=== PATIENT | female | born 1955 | race Caucasian/White ===

== ENCOUNTER 2020-02-17 17:42 | Emergency (ER) | payer MEDICARE, MEDICAID ==
[~2020-02-17] VITALS: Ht 162.6 cm; Wt 82.0 kg
[~2020-02-17 17:42] MED LIST: ASPI-1497 MT; MELA2.5T MT; METO-539 MT; TRAZ-252 MT
[2020-02-17 23:53] LABS: BASOPHILS % 0.3 % (0.0-2.0); EOSINOPHILS % 0.1 % (0.0-5.0); HEMATOCRIT. 29.3 % (36.0-48.0); HEMOGLOBIN. 9.9 g/dL (12.0-16.0); LYMPHOCYTES % 14.5 % (20.0-50.0); MEAN CORPUSCULAR HEMOGLOBIN 31.1 pg (28.0-32.0); MEAN CORPUSCULAR VOLUME 91.7 fL (81.0-99.0); MONOCYTES % 7.2 % (2.0-8.0); NEUTROPHILS % 77.9 % (40.0-76.0); PLATELET 236 x1000/uL (130-400); RED CELL DISTRIBUTION WIDTH 13.8 % (11.6-14.6)
[2020-02-18 00:03] LABS: CHLORIDE 106 mEq/L (98-107); PROTHROMBIN TIME 10.8 sec (9.6-11.0)
[2020-02-18 00:06] LABS: ETHANOL BLOOD < 10 mg/dL
[2020-02-18 06:38] VITALS: BP 146/84
== END 2020-02-18 09:11 | disposition home or self-care (01) ==
LOC: ER 17:42
DX: E09.649 Drug or chemical induced diabetes mellitus with hypoglycemia without coma (principal); G93.49 Other encephalopathy; I13.10 Hypertensive heart and chronic kidney disease without heart failure, with stage 1 through stage 4 chronic kidney disease, or unspecified chronic kidney disease; N18.9 Chronic kidney disease, unspecified; I69.351 Hemiplegia and hemiparesis following cerebral infarction affecting right dominant side; E78.00 Pure hypercholesterolemia, unspecified; K21.9 Gastro-esophageal reflux disease without esophagitis; F32.9 Major depressive disorder, single episode, unspecified; Z79.84 Long term (current) use of oral hypoglycemic drugs; Z87.11 Personal history of peptic ulcer disease; Z95.2 Presence of prosthetic heart valve; Z79.82 Long term (current) use of aspirin
CPT/HCPCS: 36415; 80053; 80320; 82962; 84484; 85025; 93005; 99284; G0480

== ENCOUNTER 2020-10-12 16:45 | Inpatient (IN) | payer MEDICARE, MEDICAID ==
[~2020-10-12] VITALS: Ht 165.1 cm; Wt 83.5 kg
[2020-10-12 19:37] LABS: BASOPHILS % 0.7 % (0.0-2.0); EOSINOPHILS % 1.7 % (0.0-5.0); HEMATOCRIT. 30.4 % (36.0-48.0); HEMOGLOBIN. 10.3 g/dL (12.0-16.0); LYMPHOCYTES % 22.2 % (20.0-50.0); MEAN CORPUSCULAR HEMOGLOBIN 30.1 pg (28.0-32.0); MEAN CORPUSCULAR VOLUME 89.3 fL (81.0-99.0); MEAN PLATELET VOLUME 8.1 fl (7.4-10.4); MONOCYTES % 6.4 % (2.0-8.0); PLATELET 228 x1000/uL (130-400); RED BLOOD CELL COUNT 3.41 mill/uL (4.2-5.4); RED CELL DISTRIBUTION WIDTH 13.4 % (11.6-14.6)
[2020-10-12 19:45] LABS: CHLORIDE 105 mEq/L (98-107)
[2020-10-12 23:36] LABS: CLARITY URINE CLEAR (CLEAR); COLOR URINE YELLOW (YELLOW); KETONES URINE NEGATIVE (NEGATIVE); LEUKOCYTE ESTERASE URINE TRACE (NEGATIVE); NITRITE URINE NEGATIVE (NEGATIVE); OCCULT BLOOD URINE NEGATIVE (NEGATIVE); PROTEIN URINE NEGATIVE (NEGATIVE); SPECIFIC GRAVITY URINE 1.008 (1.005-1.030); UROBILINOGEN URINE 0.2 E.U./dL (0.2-1.0)
[2020-10-13] VITALS (7 sets, daily range): BP systolic 117–148; BP diastolic 77–98
[2020-10-13 00:01] LABS: *AMPHETAMINES SCREEN URINE NEGATIVE (NEGATIVE)
[2020-10-13 00:02] LABS: *COCAINE SCREEN URINE NEGATIVE (NEGATIVE); CANNABINOID URINE SCREEN NEGATIVE (NEGATIVE); PHENCYCLIDINE URINE SCREEN NEGATIVE (NEGATIVE)
[2020-10-13 00:03] LABS: *BARBITURATES SCREEN URINE NEGATIVE (NEGATIVE); OPIATES URINE SCREEN NEGATIVE (NEGATIVE)
[2020-10-13 00:05] LABS: *BENZODIAZEPINES SCREEN URINE NEGATIVE (NEGATIVE)
[2020-10-13 00:08] LABS: METHADONE URINE SCREEN NEGATIVE (NEGATIVE)
[2020-10-13] MEDS ORDERED: REGADENOSON 0.4 MG/5 ML IV NR (10:00)
[2020-10-13] MEDS ORDERED: CLON0.5T23 PO (10:17)
[2020-10-13] MEDS ORDERED: TOPUD PO (10:19)
[2020-10-13] MEDS ORDERED: CLON0.1T PO (10:19)
[2020-10-13] MEDS: SODIUM CHLORIDE 0.9% 1,000 ML IV SCH (12:12)
[2020-10-13] MEDS: METOPROLOL TARTRATE 50MG TABLET PO SCH ×2 (12:28→17:58)
[2020-10-13] MEDS: CLONIDINE 0.1MG TABLET PO SCH (12:28)
[2020-10-13] MEDS ORDERED: DEXTROSE 50% WATER 50ML SYRINGE IV PRN (12:30)
[2020-10-13 16:15] LABS: CREATINE KINASE 89 IU/L (26-192)
[2020-10-13] MEDS: BLOOD SUGAR DIAGNOSTIC STRIP TEST SCH ×2 (16:50→20:57)
[2020-10-13] MEDS: INSULIN LISPRO 100 UNITS/ML SUBCUT SCH ×2 (17:20→20:56)
[2020-10-13] MEDS: ENOXAPARIN 30MG/0.3ML SYR SUBCUT SCH (17:58)
[2020-10-13] MEDS: TRAZODONE HCL 50MG TABLET PO SCH (20:56)
[2020-10-13] MEDS: AMLODIPINE 2.5MG TABLET PO SCH (20:56)
[2020-10-13] MEDS: CLONAZEPAM 0.5MG TABLET PO SCH (20:56)
[2020-10-13] MEDS ORDERED: MEDICATION NOT ON FORMULARY EA (Melatonin 1 TAB) MT SCH (21:00)
[2020-10-13] MEDS ORDERED: MEDICATION NOT ON FORMULARY EA (Trazodone Hcl 50 TAB) MT SCH (21:00)
[2020-10-13] MEDS ORDERED: MEDICATION NOT ON FORMULARY EA (Clonazepam 0.5 MG) PO SCH (21:00)
[2020-10-14] VITALS (10 sets, daily range): BP systolic 96–158; BP diastolic 53–106
[2020-10-14] MEDS: SODIUM CHLORIDE 0.9% 1,000 ML IV SCH ×2 (01:37→14:44)
[2020-10-14] MEDS: BLOOD SUGAR DIAGNOSTIC STRIP TEST SCH ×4 (06:18→20:27)
[2020-10-14 07:13] LABS: BASOPHILS % 0.5 % (0.0-2.0); EOSINOPHILS % 1.7 % (0.0-5.0); LYMPHOCYTES % 29.9 % (20.0-50.0); MEAN CORPUSCULAR HEMOGLOBIN 30.5 pg (28.0-32.0); MEAN PLATELET VOLUME 8.9 fl (7.4-10.4); MONOCYTES % 8.5 % (2.0-8.0); NEUTROPHILS % 59.4 % (40.0-76.0); PLATELET 216 x1000/uL (130-400); RED BLOOD CELL COUNT 3.26 mill/uL (4.2-5.4); RED CELL DISTRIBUTION WIDTH 13.5 % (11.6-14.6)
[2020-10-14] MEDS: INSULIN LISPRO 100 UNITS/ML SUBCUT SCH ×4 (07:20→20:27)
[2020-10-14 07:31] LABS: CHLORIDE 110 mEq/L (98-107)
[2020-10-14 07:39] LABS: LDL CHOLESTEROL 45 mg/dL (5-100)
[2020-10-14 07:40] LABS: HDL CHOLESTEROL 34 mg/dL (40-59)
[2020-10-14 07:44] LABS: T4 FREE 1.44 ng/dL (0.76-1.46)
[2020-10-14 07:45] LABS: TOTAL IRON BINDING CAPACITY 270 ug/dL (250-450)
[2020-10-14] MEDS: AMLODIPINE 2.5MG TABLET PO SCH ×2 (08:26→20:34)
[2020-10-14] MEDS: CLONIDINE 0.1MG TABLET PO SCH ×2 (08:26→17:49)
[2020-10-14] MEDS: ASPIRIN 81MG EC TABLET PO SCH (08:26)
[2020-10-14] MEDS: METOPROLOL TARTRATE 50MG TABLET PO SCH ×3 (08:27→17:49)
[2020-10-14] MEDS ORDERED: POTASSIUM CHLORIDE 20MEQ TABLET SR PO NR (09:30)
[2020-10-14] MEDS ORDERED: REGADENOSON 0.4 MG/5 ML IV ONE (13:11)
[2020-10-14] MEDS ORDERED: METOPROLOL TARTRATE 5MG/5ML VIAL IV NR (15:15)
[2020-10-14] MEDS ORDERED: METOPROLOL TARTRATE 5MG/5ML VIAL IV PRN (15:15)
[2020-10-14] MEDS: ENOXAPARIN 30MG/0.3ML SYR SUBCUT SCH (15:50)
[2020-10-14] MEDS ORDERED: ACETAMINOPHEN 325MG TABLET PO PRN (18:15)
[2020-10-14] MEDS: TRAZODONE HCL 50MG TABLET PO SCH (20:34)
[2020-10-14] MEDS: CLONAZEPAM 0.5MG TABLET PO SCH (20:35)
[2020-10-15] VITALS (12 sets, daily range): BP systolic 100–153; BP diastolic 47–85
[2020-10-15] MEDS: SODIUM CHLORIDE 0.9% 1,000 ML IV SCH ×2 (03:22→17:20)
[2020-10-15] MEDS: BLOOD SUGAR DIAGNOSTIC STRIP TEST SCH ×4 (06:08→20:59)
[2020-10-15] MEDS: INSULIN LISPRO 100 UNITS/ML SUBCUT SCH ×4 (07:20→20:59)
[2020-10-15 08:08] LABS: ANTI-NUCLEAR ANTIBODIES DIRECT Positive (Negative)
[2020-10-15] MEDS: METOPROLOL TARTRATE 50MG TABLET PO SCH ×2 (09:15→16:40)
[2020-10-15] MEDS: ASPIRIN 81MG EC TABLET PO SCH (09:15)
[2020-10-15] MEDS: CLONIDINE 0.1MG TABLET PO SCH ×2 (09:15→16:40)
[2020-10-15] MEDS: AMLODIPINE 2.5MG TABLET PO SCH ×2 (09:16→20:59)
[2020-10-15] MEDS ORDERED: AMLO2.5T45 PO (12:11)
[2020-10-15] MEDS: ENOXAPARIN 30MG/0.3ML SYR SUBCUT SCH (16:39)
[2020-10-15] MEDS: TRAZODONE HCL 50MG TABLET PO SCH (20:59)
[2020-10-15] MEDS: CLONAZEPAM 0.5MG TABLET PO SCH (20:59)
[2020-10-16 00:45] VITALS: BP 121/60
[2020-10-22 07:08] LABS: DOPAMINE URINE 117 ug/L (Undefined); DOPAMINE URINE 24 HR 79 ug/24 hr (0-510); EPINEPHRINE URINE 6 ug/L (Undefined); EPINEPHRINE URINE 24 HR 4 ug/24 hr (0-20); NOREPINEPHRINE UR 24 HR 49 ug/24 hr (0-135); NOREPINEPHRINE URINE 73 ug/L (Undefined)
[2020-10-27 08:12] LABS: VMA 24HR URINE 3.8 mg/24 hr (0.0-7.5); VMA CONCENTRATION 5.7 mg/L (Undefined)
== END 2020-10-16 01:15 | disposition home or self-care (01) | DRG 205 ==
LOC: ER 16:45 → MICUSO 23:18 → 3WST 10-13 08:14
PROVIDERS: ADMIT Internal Medicine; ATTEND Internal Medicine
DX: M94.0 Chondrocostal junction syndrome [Tietze] (principal); N18.6 End stage renal disease; N17.0 Acute kidney failure with tubular necrosis; I69.354 Hemiplegia and hemiparesis following cerebral infarction affecting left non-dominant side; I12.0 Hypertensive chronic kidney disease with stage 5 chronic kidney disease or end stage renal disease; E11.22 Type 2 diabetes mellitus with diabetic chronic kidney disease; E66.9 Obesity, unspecified; D64.9 Anemia, unspecified; E78.5 Hyperlipidemia, unspecified; F17.200 Nicotine dependence, unspecified, uncomplicated; Z96.659 Presence of unspecified artificial knee joint; E78.00 Pure hypercholesterolemia, unspecified; N28.1 Cyst of kidney, acquired; F41.8 Other specified anxiety disorders; I95.9 Hypotension, unspecified; R26.9 Unspecified abnormalities of gait and mobility; R53.81 Other malaise; Z68.30 Body mass index [BMI] 30.0-30.9, adult; Z99.2 Dependence on renal dialysis; Z79.82 Long term (current) use of aspirin; Z82.49 Family history of ischemic heart disease and other diseases of the circulatory system; Z79.899 Other long term (current) drug therapy; Z90.49 Acquired absence of other specified parts of digestive tract; Z71.3 Dietary counseling and surveillance; Z56.0 Unemployment, unspecified
CPT/HCPCS: 36415; 71045; 76770; 78452; 80048; 80053; 80061; 80305; 81003; 82384; 82550; 82962; 83036; 83540; 83550; 83605; 83880; 84439; 84443; 84481; 84484; 84585; 85025; 86038; 86160; 93005; 93017; 93306; 97162; 97535; 99285; A9500; J1650; J1815; J2785; J3490; J7030

== ENCOUNTER 2020-11-01 19:50 | Emergency (ER) | payer MEDICARE, MEDICAID ==
[~2020-11-01] VITALS: Ht 165.1 cm; Wt 62.0 kg
[~2020-11-01 19:50] MED LIST changes: +AMLO2.5T45 PO; +CLON0.1T PO; +CLON0.5T23 PO; +TOPUD PO
[2020-11-02 00:03] LABS: BASOPHILS % 0.6 % (0.0-2.0); EOSINOPHILS % 2.1 % (0.0-5.0); HEMATOCRIT. 25.7 % (36.0-48.0); HEMOGLOBIN. 8.9 g/dL (12.0-16.0); LYMPHOCYTES % 35.1 % (20.0-50.0); MEAN CORPUSCULAR HEMOGLOBIN 30.6 pg (28.0-32.0); MEAN CORPUSCULAR VOLUME 88.1 fL (81.0-99.0); MEAN PLATELET VOLUME 7.1 fl (7.4-10.4); MONOCYTES % 7.6 % (2.0-8.0); NEUTROPHILS % 54.6 % (40.0-76.0); PLATELET 261 x1000/uL (130-400); RED BLOOD CELL COUNT 2.92 mill/uL (4.2-5.4)
[2020-11-02 00:07] LABS: CHLORIDE 109 mEq/L (98-107)
[2020-11-02 04:28] VITALS: BP 156/85
== END 2020-11-02 04:31 ==
LOC: ER 19:50
DX: R07.89 Other chest pain (principal); I11.0 Hypertensive heart disease with heart failure; I50.9 Heart failure, unspecified; Z86.73 Personal history of transient ischemic attack (TIA), and cerebral infarction without residual deficits
CPT/HCPCS: 36415; 71045; 80053; 83880; 84484; 85025; 93005; 99285